=== PATIENT | female | born 1945 | race Caucasian/White ===

== ENCOUNTER 2020-10-30 14:47 | Inpatient (IN) | payer MEDICARE, OTHER ==
[~2020-10-30] VITALS: Ht 165.1 cm; Wt 79.4 kg
[2020-10-30 14:54] VITALS: BP 148/60
[2020-10-30] MEDS ORDERED: DORZOLAMIDE 2%10 ML EA. EYE (15:11)
[2020-10-30] MEDS ORDERED: LEVO-T100 MCG PO (15:12)
[2020-10-30] MEDS ORDERED: PLAVIX 75 MG TA75 MG PO (15:12)
[2020-10-30] MEDS ORDERED: AMITIZA 24 MCG24 MC1 PO (15:12)
[2020-10-30] MEDS ORDERED: DRIZALMA SPRINK30 MG PO (15:12)
[2020-10-30] MEDS ORDERED: ASA81BEC PO (15:12)
[2020-10-30 15:13] LABS: ABSOLUTE BASOPHILS 0.1 thou/uL (0.0-0.2); ABSOLUTE EOSINOPHILS 0.2 thou/uL (0.0-0.7); ABSOLUTE LYMPHOCYTES 2.1 thou/uL (0.8-5.3); ABSOLUTE MONOCYTES 0.6 thou/uL (0.0-1.2); ABSOLUTE NEUTROPHILS 8.4 thou/uL (1.6-8.1); BASOPHILS 0.8 %; EOSINOPHILS 1.9 %; HEMATOCRIT 37.5 % (37.0-47.0); HEMOGLOBIN 12.5 gm/dL (12.0-15.0); LYMPHOCYTES 18.3 %; MCH 28.4 pg (26.0-34.0); MCHC 33.4 g/dL (28.0-37.0); MONOCYTES 5.5 %; MPV 7.4 fl. (7.2-11.1); NUCLEATED RBCS 0 /100WBC; PLATELET COUNT* 303 thou/uL (150-400); POLYS 73.5 %; RBC 4.41 mil/uL (4.20-5.00); RDW-CV 13.9 % (10.5-14.5); WBC 11.4 thou/uL (4.0-11.0)
[2020-10-30] MEDS ORDERED: PROAIR HFA8.5 GM INH (15:13)
[2020-10-30] MEDS ORDERED: INTERMEZZO3.5 MG PO (15:13)
[2020-10-30 15:22] LABS: CALCIUM 9.6 mg/dL (8.5-10.1); CREATININE 1.2 mg/dL (0.6-1.3); POTASSIUM 4.1 mmol/L (3.5-5.1)
[2020-10-30 15:25] LABS: APTT 25.9 Seconds (25.0-31.3); PROTIME 10.5 Seconds (9.20-11.50)
[2020-10-30 15:32] LABS: ALBUMIN 3.9 g/dL (3.4-5.0); TOTAL BILIRUBIN 0.7 mg/dL (<0.1-1.0); TOTAL PROTEIN 7.6 g/dL (6.4-8.2)
[2020-10-30 16:58] VITALS: BP 123/66
[2020-10-30 20:00] VITALS: BP 118/45
[2020-10-30] MEDS ORDERED: AMBIEN 10 MG TA10 MG PO (21:45)
[2020-10-31] VITALS: BP 136/64
[2020-10-31 03:58] VITALS: BP 90/44
[2020-10-31 04:26] LABS: HEMATOCRIT 33.5 % (37.0-47.0); HEMOGLOBIN 11.3 gm/dL (12.0-15.0); MCH 28.8 pg (26.0-34.0); MCHC 33.8 g/dL (28.0-37.0); MCV 85.4 fL (80.0-100.0); MPV 7.9 fl. (7.2-11.1); RBC 3.93 mil/uL (4.20-5.00); RDW-CV 13.8 % (10.5-14.5); WBC 7.8 thou/uL (4.0-11.0)
[2020-10-31 04:48] LABS: CALCIUM 9.6 mg/dL (8.5-10.1); CREATININE 1.7 mg/dL (0.6-1.3); POTASSIUM 3.8 mmol/L (3.5-5.1)
[2020-10-31 08:00] VITALS: BP 87/40
[2020-10-31 11:43] VITALS: BP 92/47
--- NOTE | 2020-10-31 11:55 | EKG ---
[place] [address] ELECTROCARDIOGRAM REPORT Name: SANDIP LEWIS Room: [address] ADM IN ..#: [id number] Admission: 10/30/20 Attend Phys: Nakita Cardenas MD Discharge: Date of : 49 Date of Service: 10/30/20 1513 Report #: [id number] THIS REPORT FOR: //name// [facility] ED Test Date: 2020-10-30 Test Time: 15:13:21 Pat Name: SANDIP LEWIS Department: Room: [facility] Gender: F Enamel Cracker: ALICIA Garcia : 1945 Requested By: Jim Watts Order Number: [id number] MD: Jorge Escamilla Measurements Intervals [place] Rate: 74 P: 4 DE: 164 QRS: -62 QRSD: 100 T: 75 QT: 401 QTc: 445 Interpretive Statements Sinus rhythm Left anterior fascicular block Abnormal R-wave progression, early transition No previous ECG available for comparison Electronically Signed On 10-31-2020 11:55:00 SMASH FIXER by Jorge Escamilla [email or web address] <ELECTRONICALLY SIGNED> By: Seth Escamilla MD, [facility] 10/31/20 1155 1513 1513 Seth Escamilla MD, [facility] /EPI
--- NOTE | 2020-10-31 12:05 | CON ---
[address] [address] CONSULTATION Name: SANDIP LEWIS Room: [address] IN M.R.#: [id number] Admission: 10/30/20 Attend Phys: Nakita Cardenas MD Discharge: Date of : 49 Report #: [id number] THIS REPORT FOR: cc: Gilberto Bermudez Bradley L. DO ~ Seth Escamilla MD [facility] CARDIOLOGY CONSULTATION HISTORY OF PRESENT ILLNESS: I was asked by Dr. Cardenas to see this 75-year-old white female in cardiology consultation for evaluation and treatment of chest pain. This lady has a history of coronary bypass surgery in the distant past as well as 2 stents. She has a history of smoking in the past. She has hypercholesterolemia and high blood pressure. She has no leguillon debeader or doctor here. She has only recently moved here from [facility]. She began having chest pain about a week and a half ago after she had walked her dog. She describes it as a tightness in the chest or a load of bricks on her chest. She had several small episodes over the last 10 days or so. These sometimes occurred following exertion, but sometimes occurred at request. The episode that brought her to the hospital began at about 4:00 a.m. yesterday when she was awakened from sleep with it. The pain was a 9 on a scale of 10 initially. It was associated with numbness in both arms and shoulders. She said it felt like a ton of bricks. It lasted 9 hours before she finally came to the Emergency Room. She got nitroglycerin in the Emergency Room and had relief of the pain within 5 minutes. The pain initially went down to a 3, but then gradually went away. It was associated with shortness of breath. There were no other associated symptoms. There was no other radiation of the pain. She does have chronic dyspnea on exertion, shortness of breath. She does have chronic orthopnea and PND at times. She does have chronic edema at times. She has not had syncope. She has had near-syncopal episodes on 2 occasions. She does have high cholesterol. She is a former smoker. She quit years ago. She does have high blood pressure. There is a family history of heart disease. She does have stage 3 kidney disease. She is unaware of any carotid or peripheral vascular disease. She has never had a stroke or TIA. She does have pain in her legs when she walks, but she thinks it is arthritis. She does not have any open or nonhealing wounds. Additional issues include COPD and hypothyroidism. She also has chronic kidney disease, stage 3. She has had an appendectomy, cholecystectomy, hernia repair and a bladder tack. ALLERGIES: SHE IS ALLERGIC TO ERYTHROMYCIN AND LATEX. HOME MEDICATIONS: Include albuterol p.r.n., aspirin 81 mg daily, Plavix 75 mg daily, dorzolamide eyedrops, duloxetine 30 mg daily, Synthroid 100 mcg daily, Amitiza 24 mg daily and Ambien 10 mg daily at bedtime. SOCIAL HISTORY: She is . Does not smoke, drink or use illegal drugs. [address] [place] [address] CONSULTATION Name: SANDIP LEWIS Room: [address] IN M.Rosa.#: [id number] Admission: 10/30/20 Attend Phys: Nakita Cardenas MD Discharge: Date of : 49 Report #: [id number] FAMILY HISTORY: Father of a heart attack. Brother has coronary stents. REVIEW OF SYSTEMS: Positive for cough, sputum production, chest discomfort, shortness of breath with exercise, shortness of breath with lying down, waking up short of breath, thyroid trouble, blood in the urine, medical allergies, wearing glasses and glaucoma. Otherwise, review of systems is negative for some 30 different complaints in 14 different system categories. Please see review of system form for details and negatives in review of systems. Systems reviewed include central nervous system, general, respiratory, cardiovascular, endocrine, gastrointestinal, genitourinary, hematologic, lymphatic, allergic, immunologic, psychiatric, musculoskeletal, skin, eyes, ears, nose, mouth, and throat. PHYSICAL EXAMINATION: GENERAL: She presents as well-developed, well-nourished, obese white female, in no acute distress. VITAL SIGNS: Her pulse when I saw her was 58 and regular, blood pressure was 100/44, respirations were 18 and regular, temperature is 96.6. HEENT: Her head was atraumatic. Eyes clear. NECK: Supple. There is no jugular venous distention or hepatojugular reflux. Thyroid is not enlarged. There is no adenopathy. SKIN: Warm and dry. Mucous membranes are moist. LUNGS: Clear to auscultation and percussion. HEART: Revealed normal first and second heart sound. There is soft S4. There is no S3. There are no murmurs, rubs, thrills, heaves or gallops. PMI is nondisplaced. ABDOMEN: Soft, flat and nontender. No palpable masses, no organomegaly. EXTREMITIES: Reveal no cyanosis, clubbing or edema. LABORATORY DATA: Troponins were negative x 3 and her NT-proBNP was 401. Her EKG shows normal sinus rhythm with minimal ST-segment depression in V2. There is left axis deviation, left anterior fascicular block. There is early transition in precordial R-wave. IMPRESSION: 1. Chest pain consistent with unstable angina. 2. Coronary artery disease, status post 2 coronary stents. 3. Status post coronary artery bypass graft surgery. 4. Chronic obstructive pulmonary disease. 5. Hypothyroidism. 6. Chronic kidney disease, stage 3. RECOMMENDATIONS: She should have cardiac catheterization and coronary angiography tomorrow. In the meantime, she should have [place] [address] CONSULTATION Name: SANDIP LEWIS Room: [address] IN [facility].#: [id number] Admission: 10/30/20 Attend Phys: Nakita Cardenas MD Discharge: Date of : 49 Report #: [id number] nitro paste. She should be continued on her aspirin and Plavix. If she has further pain, she should get either Lovenox or heparin drip and consideration for an IV antiplatelet agent would be made if she persists being unstable at this point. She is not having pain; however, she has had no pain since she came in yesterday afternoon. Thank you very much for asking me to see the patient. If there are any questions, please feel free to contact me. <ELECTRONICALLY SIGNED> By: Seth Escamilla MD, [facility] 10/31/20 1205 1008 [id number]. Jorge Escamilla MD, MANNY /nt
[2020-10-31 16:13] VITALS: BP 97/42
[2020-10-31 20:54] VITALS: BP 127/50
[2020-11-01] VITALS (19 sets, daily range): BP systolic 101–161; BP diastolic 49–74
[2020-11-01 04:26] LABS: ABSOLUTE BASOPHILS 0.1 thou/uL (0.0-0.2); ABSOLUTE EOSINOPHILS 0.5 thou/uL (0.0-0.7); ABSOLUTE LYMPHOCYTES 2.3 thou/uL (0.8-5.3); ABSOLUTE MONOCYTES 0.6 thou/uL (0.0-1.2); ABSOLUTE NEUTROPHILS 4.1 thou/uL (1.6-8.1); BASOPHILS 1.1 %; EOSINOPHILS 6.5 %; HEMATOCRIT 34.8 % (37.0-47.0); HEMOGLOBIN 11.9 gm/dL (12.0-15.0); LYMPHOCYTES 30.1 %; MCH 29.1 pg (26.0-34.0); MCHC 34.2 g/dL (28.0-37.0); MPV 8.2 fl. (7.2-11.1); NUCLEATED RBCS 0 /100WBC; PLATELET COUNT* 259 thou/uL (150-400); POLYS 54.3 %; RDW-CV 13.8 % (10.5-14.5); WBC 7.5 thou/uL (4.0-11.0)
[2020-11-01 05:08] LABS: ALBUMIN 3.3 g/dL (3.4-5.0); CALCIUM 9.9 mg/dL (8.5-10.1); CREATININE 1.7 mg/dL (0.6-1.3); POTASSIUM 4.1 mmol/L (3.5-5.1); TOTAL BILIRUBIN 0.3 mg/dL (<0.1-1.0)
[2020-11-01 08:27] LABS: CHOLESTEROL 130 mg/dL (<200); HDL CHOLESTEROL 49 mg/dL (>40); LDL CHOLESTEROL 61 mg/dL (<100); TC:HDL 2.7 Ratio (Not establshd); TRIGLYCERIDE 104 mg/dL (<150); VLDL 21 mg/dL (<40)
[2020-11-01 08:45] LABS: SERUM ASSESSMENT Clear
--- NOTE | 2020-11-01 14:20 | CARD ---
[address] [address] CARDIAC CATH REPORT Name: JOSHUASANDIP Christopher Room: [address] IN [facility]#: [id number] Admission: 10/30/20 Attend Phys: Nakita Cardenas MD Discharge: Date of : 49 Report #: [id number] THIS REPORT FOR: cc: Gilberto Bermudez Bradley L. DO ~ Esequiel Mason MD [facility] APPROVED REPORT Study performed: 11/01/2020 11:52:31 Patient Details Patient Status: In-Patient Room #: 209 The patient is a 75 year-old female Event Personnel Esequiel Mason Touch Up Edger, Obey Kimball Subedi, Sujita RN RN, Rock Freeman RTR Monitor Procedures Performed Left Heart Cath Coronaries, Bypass Grafts [id number] LHCCORCABG Hemostasis w/ Mynx Indication Chest pain Risk Factors Obesity, Hypercholesterolemia, Hypertension, Last Creatanine 1.7 Previous Procedures/Diagnoses Previous CABGPrevious PCI Admission/Lab Medications/Medications given during procedure Fentanyl IV 25 mcg, Midazolam (Versed) IV 1 mg, Lidocaine Subcut 20 ml Procedure Narrative The patient was brought electively to the Cardiac Catheterization Laboratory and was prepped and draped in a sterile manner. The right femoral was infiltrated with 2% Lidocaine subcutaneous anesthesia. A [place] 6 FR sheath was inserted into the right femoral artery. Coronary angiography was performed using coronary diagnostic catheters. The right coronary system was accessed and visualized with a Diagnostic JR4 6Fr catheter. The [place] [address] CARDIAC CATH REPORT Name: SANDIP LEWIS Room: [address]#: [id number] Admission: 10/30/20 Attend Phys: Nakita Cardenas MD Discharge: Date of : 49 Report #: [id number] and visualized with a Diagnostic JL4 6Fr catheter. The left ventricle was accessed and visualized with a Diagnostic Pigtail 6Fr catheter. Left ventricular/Aortic Valve gradient assessed via catheter pullback. Pre-demployment femoral angiogram was performed . Closure device was deployed with a 6 Fr Mynx. The patient tolerated the procedure well and there were no complications associated with the procedure. There was no hematoma. Intraoperative Conscious Sedation Sedation start time: 1222 Case end Time: 1255 Fentanyl 25 mcg Versed 1 mg Fluoro Time: 5.7 minutes Dose: DAP 49690 cGycm2 810.76 mGy Contrast Type and Amount: Visipaque 100 ml [place] Artery Percent Stenosis 1. Diminutive but patent SINCLAIR graft to the distal LAD 2. Widely patent saphenous vein graft to marginal branch of the circumflex and the posterior descending branch of the distal circumflex Diagnostic Cath Left Main 40% distal narrowing LAD 30% proximal with 40% mid vessel narrowing Circumflex 40% mid vessel narrowing with 80% stenosis of the proximal portion of the prominent marginal branch and total occlusion of the posterior descending branch of the dominant circumflex Right Coronary Small nondominant vessel with 0% narrowing Left Ventriculography Left Ventriculography was not performed. Hemodynamics The aortic pressure is 140/61 mmHg with a mean of 89 mmHg. The left ventricular pressure is 130/-7 mmHg with a mean of mmHg. The left ventricular end diastolic pressure is 13 mmHg. There was no gradient across the aortic valve upon pullback. Conclusion 1. Significant coronary artery disease characterized by the following: [place] [address] CARDIAC CATH REPORT Name: SANDIP LEWIS Room: [address] IN [facility]#: [id number] Admission: 10/30/20 Attend Phys: Nakita Cardenas MD Discharge: Date of : 49 Report #: [id number] 40% distal left main coronary artery narrowing B 30% proximal and 40% mid LAD stenosis C 40% mid circumflex narrowing with 80% narrowing involving the proximal portion of the prominent marginal branch and total occlusion of the posterior descending branch of the dominant circumflex D small nondominant right coronary artery with 0% narrowing 2. Coronary artery bypass graft study characterized by the following: A diminutive but patent SINCLAIR graft to the distal LAD B widely patent saphenous vein graft to a marginal branch of the circumflex and the posterior descending branch of the dominant circumflex 3. Normal left-sided hemodynamic study Recommendations Cardiac Risk Reduction Program Diagnostic Cath Approved by: Esequiel Mason MD Date/Time: 11/01/2020 14:15:38 <ELECTRONICALLY SIGNED> By: Esequiel Mason MD, [facility] 11/01/20 1419 1419 1419Esequiel Mason MD, [facility] /INF
--- NOTE | 2020-11-01 15:52 | 2DMMODE ---
[place] [address] 2 D/M-MODE ECHOCARDIOGRAM Name: JOSHUASANDIP Christopher Room: [address] IN .Rosa.#: [id number] Admission: 10/30/20 Attend Phys: Nakita Cardenas MD Discharge: Date of : 49 Date of Service: 11/01/20 1551 Report #: [id number] THIS REPORT FOR: cc: Gilberto Bermudez Bradley L. DO Holkins, John M. MD [facility] ~ APPROVED REPORT Study performed: 11/01/2020 14:04:45 EXAM: Comprehensive 2D, Doppler, and color-flow Echocardiogram Patient Location: In-Patient Room #: 209 Status: routine BSA: 1.93 HR: 66 bpm BP: 127/57 mmHg Rhythm: NSR Other Information Study Quality: Good Indications Chest Pain 2D Dimensions IVSd: 10.82 (7-11mm) LVOT Diam: 21.09 (18-24mm) LVDd: 41.48 mm PWd: 9.12 (7-11mm) Ascending Ao: 30.65 (22-36mm) LVDs: 24.25 (25-40mm) Aortic Root: 30.17 mm Volumes Left Atrial Volume (Systole) LA ESV Index: 22.60 mL/m2 Aortic Valve AoV Peak Omar.: 1.44 m/s AO Peak Gr.: 8.32 mmHg LVOT Max P.42 mmHg AO Mean Gr.: 4.67 mmHg LVOT Mean P.23 mmHg LVOT Max V: 1.36 m/s AO V2 VTI: 29.47 cm LVOT Mean V: 0.97 m/s JERMAN (VTI): 3.65 cm2 LVOT V1 VTI: 30.80 cm AI [place]: 1.43 m/s2 [place] [address] 2 D/M-MODE ECHOCARDIOGRAM Name: SANDIP LEWIS Room: [address] IN M.R.#: [id number] Admission: 10/30/20 Attend Phys: Nakita Cardenas MD Discharge: Date of : 49 Date of Service: 11/01/20 1551 Report #: [id number] AI PHT: 741.90 ms Mitral Valve E/A Ratio: 0.75 MV Decel. Time: 375.02 ms MV E Max Omar.: 0.62 m/s MV PHT: 108.76 ms MVA (PHT): 2.02 cm2 TDI E/Lateral E': 6.89 E/Medial E': 7.75 Medial E' Omar.: 0.08 m/s Lateral E' Omar.: 0.09 m/s Pulmonary Valve PV Peak Omar.: 0.94 m/s PV Peak Gr.: 3.50 mmHg Left Ventricle The left ventricle is normal size. There is normal LV segmental wall motion. There is normal left ventricular wall thickness. Left ventricular systolic function is normal. The left ventricular ejection fraction is within the normal range. LVEF is 60%. Grade I - abnormal relaxation pattern. Right Ventricle The right ventricle is normal size. The right ventricular systolic function is normal. Atria The left atrium size is normal. The right atrium size is normal. Aortic Valve The aortic valve is normal in structure. Mild aortic regurgitation. There is no aortic valvular stenosis. Mitral Valve The mitral valve is normal in structure. There is no mitral valve regurgitation noted. No evidence of mitral valve stenosis. Tricuspid Valve The tricuspid valve is normal in structure. Unable to assess PA pressure. Trace tricuspid regurgitation. Pulmonic Valve The pulmonary valve is normal in structure. [place] [address] 2 D/M-MODE ECHOCARDIOGRAM Name: SANDIP LEWIS Room: [address] IN [facility]#: [id number] Admission: 10/30/20 Attend Phys: Nakita Cardenas MD Discharge: Date of : 49 Date of Service: 11/01/20 1551 Report #: [id number] valvular regurgitation. Great Vessels The aortic root is normal in size. IVC is normal in size and collapses >50% with inspiration. Pericardium There is no pericardial effusion. <Conclusion> The left ventricle is normal size. There is normal left ventricular wall thickness. Left ventricular systolic function is normal. The left ventricular ejection fraction is within the normal range. LVEF is 60%. Grade I - abnormal relaxation pattern. The right ventricle is normal size. The left atrium size is normal. The aortic valve is normal in structure. Mild aortic regurgitation. There is no aortic valvular stenosis. The mitral valve is normal in structure. The tricuspid valve is normal in structure. IVC is normal in size and collapses >50% with inspiration. There is no pericardial effusion. There is normal LV segmental wall motion. <ELECTRONICALLY SIGNED> By: Esequiel Mason MD, FACC 11/01/20 [phone] Esequiel Mason MD, FACC /INF
[2020-11-02 00:11] VITALS: BP 114/52
[2020-11-02 03:47] VITALS: BP 123/57
[2020-11-02 05:02] LABS: ABSOLUTE BASOPHILS 0.1 thou/uL (0.0-0.2); ABSOLUTE EOSINOPHILS 0.3 thou/uL (0.0-0.7); ABSOLUTE LYMPHOCYTES 1.9 thou/uL (0.8-5.3); ABSOLUTE MONOCYTES 0.6 thou/uL (0.0-1.2); ABSOLUTE NEUTROPHILS 5.1 thou/uL (1.6-8.1); BASOPHILS 0.8 %; EOSINOPHILS 3.4 %; HEMATOCRIT 29.8 % (37.0-47.0); HEMOGLOBIN 10.2 gm/dL (12.0-15.0); LYMPHOCYTES 23.7 %; MCH 29.1 pg (26.0-34.0); MCHC 34.2 g/dL (28.0-37.0); MCV 85.2 fL (80.0-100.0); MONOCYTES 7.2 %; MPV 7.7 fl. (7.2-11.1); NUCLEATED RBCS 0 /100WBC; PLATELET COUNT* 238 thou/uL (150-400); POLYS 64.9 %; RDW-CV 13.5 % (10.5-14.5); WBC 7.9 thou/uL (4.0-11.0)
[2020-11-02 05:11] LABS: ALBUMIN 2.9 g/dL (3.4-5.0); CREATININE 1.2 mg/dL (0.6-1.3); POTASSIUM 4.3 mmol/L (3.5-5.1); TOTAL BILIRUBIN 0.3 mg/dL (<0.1-1.0); TOTAL PROTEIN 5.9 g/dL (6.4-8.2)
[2020-11-02 08:00] VITALS: BP 136/57
[2020-11-02] MEDS ORDERED: NITROGLYCERIN0.4 MG SUBLING (08:35)
[2020-11-02] MEDS ORDERED: METOPROLOL TART25 MG PO (08:35)
[2020-11-02] MEDS ORDERED: LIPITOR40 MG PO (08:39)
[2020-11-02 10:26] VITALS: BP 136/57
== END 2020-11-02 12:30 | disposition home or self-care (01) | DRG 286 ==
LOC: M.ERS 14:47 → M.2W 16:08 → M.TBA-ER 16:08 → M.2W 17:33
PROVIDERS: Emergency Medicine Emergency Medical Services; Internal Medicine; Registered Nurse; ADMIT Family Medicine; ATTEND Family Medicine
DX: I25.110 Atherosclerotic heart disease of native coronary artery with unstable angina pectoris (principal); I50.33 Acute on chronic diastolic (congestive) heart failure; I13.0 Hypertensive heart and chronic kidney disease with heart failure and stage 1 through stage 4 chronic kidney disease, or unspecified chronic kidney disease; E78.5 Hyperlipidemia, unspecified; E03.9 Hypothyroidism, unspecified; N18.30 Chronic kidney disease, stage 3 unspecified; J44.9 Chronic obstructive pulmonary disease, unspecified; E78.00 Pure hypercholesterolemia, unspecified; Z20.822 Contact with and (suspected) exposure to COVID-19; Z88.8 Allergy status to other drugs, medicaments and biological substances; Z91.040 Latex allergy status; Z95.1 Presence of aortocoronary bypass graft; Z79.82 Long term (current) use of aspirin; Z79.899 Other long term (current) drug therapy; Z87.891 Personal history of nicotine dependence; Z79.01 Long term (current) use of anticoagulants

== ENCOUNTER → 2020-12-15 | Outpatient (CLI) | payer MEDICARE, OTHER ==
[~2020-12-15] MED LIST: AMBIEN 10 MG TA10 MG PO; AMITIZA 24 MCG24 MC1 PO; ASA81BEC PO; DORZOLAMIDE 2%10 ML EA. EYE; DRIZALMA SPRINK30 MG PO; INTERMEZZO3.5 MG PO; LEVO-T100 MCG PO; LIPITOR40 MG PO; METOPROLOL TART25 MG PO; NITROGLYCERIN0.4 MG SUBLING; PLAVIX 75 MG TA75 MG PO; PROAIR HFA8.5 GM INH
== END ==
LOC: M.ULTRA 12:33
PROVIDERS: ATTEND Otolaryngology
DX: R22.1 Localized swelling, mass and lump, neck (principal)

== ENCOUNTER → 2021-01-05 | Outpatient (CLI) | payer MEDICARE, OTHER ==
--- NOTE | 2021-01-12 16:06 | PATH ---
[address] [address] PATHOLOGY RPT PROCEDURE Name: SANDIP LEWIS Room: [facility]#: [id number] Admission: 01/05/21 Date of : 49 Discharge: Report #: [id number] Path Case #: [id number] Note [facility] Accession Number: [id number] TESTS RESULT FLAG UNITS REF RANGE LAB Clinician Provided Cytology Information No. of containers..01 Other (Miscellaneous) Source: RIGHT THYROID DIAGNOSIS: 02 RIGHT THYROID, IMAGE-GUIDED FNA: NEGATIVE FOR MALIGNANT CELLS. BETHESDA CATEGORY II. SPECIMEN CONSISTS OF A HETEROGENEOUS LYMPHOID POPULATION, HURTHLE CELLS, AND FOLLICULAR CENTER FRAGMENTS. THIS PATTERN IS CONSISTENT WITH A CHRONIC LYMPHOCYTIC THYROIDITIS. THIS INTERPRETATION INCLUDES EVALUATION OF A CELL BLOCK. Pathologist ICD10: 02 E06.3 Signed out by: Morris Rosen MD, Pathologist NPI- [id number] Performed by: Giovanna Motley, Machine Operator Cane Cutter ([facility]) Gross description: 01 15ML, CLDY LGHT TIAANG, 4FX 4AD /LCS 01/07/2021 1413 Local FLAG LEGEND: L-Low Normal,H-High Normal,LL-Alert Low,HH-Alert High <-Panic Low,>-Panic High,A-Abnormal,AA-Critical Abnormal Performed at: [address] [place] [address] Beto Garcia MD, [address] [place] [address] [place] [address] Stanford Rosen MD, Specimen Comment: A courtesy copy of this report has been sent to [phone], [phone] Specimen Comment: [phone] Specimen Comment: Report sent to Performed at: [address], [place], [place] [id number] MD Beto Garcia MD Phone: [phone]
== END | disposition home or self-care (01) ==
LOC: M.ULTRA 07:47
PROVIDERS: ATTEND Otolaryngology
DX: E04.1 Nontoxic single thyroid nodule (principal); I10 Essential (primary) hypertension; I25.10 Atherosclerotic heart disease of native coronary artery without angina pectoris; E03.9 Hypothyroidism, unspecified; E78.5 Hyperlipidemia, unspecified; Z98.890 Other specified postprocedural states; Z79.899 Other long term (current) drug therapy; Z91.040 Latex allergy status; Z88.8 Allergy status to other drugs, medicaments and biological substances; Z95.1 Presence of aortocoronary bypass graft; Z82.49 Family history of ischemic heart disease and other diseases of the circulatory system

== ENCOUNTER → 2021-02-03 | Outpatient (CLI) | payer MEDICARE, OTHER | LOC: M.RAD 10:50 | PROVIDERS: ATTEND Family Medicine | DX: Z12.31 Encounter for screening mammogram for malignant neoplasm of breast (principal) ==

== ENCOUNTER → 2021-07-05 | Outpatient (CLI) | payer MEDICARE, OTHER | LOC: M.MRI 06-27 08:30 | PROVIDERS: ATTEND Nurse Practitioner Adult Health | DX: M47.816 Spondylosis without myelopathy or radiculopathy, lumbar region (principal); M47.812 Spondylosis without myelopathy or radiculopathy, cervical region; M48.061 Spinal stenosis, lumbar region without neurogenic claudication; M47.817 Spondylosis without myelopathy or radiculopathy, lumbosacral region; L05.91 Pilonidal cyst without abscess; M50.323 Other cervical disc degeneration at C6-C7 level; M48.02 Spinal stenosis, cervical region; I70.8 Atherosclerosis of other arteries; N28.1 Cyst of kidney, acquired; G96.191 Perineural cyst ==

== ENCOUNTER → 2021-08-09 | Outpatient (CLI) | payer MEDICARE, OTHER ==
--- NOTE | 2021-08-09 09:06 | 2DMMODE ---
[place] [address] 2 D/M-MODE ECHOCARDIOGRAM Name: JOSHUASANDIPKEN VEGA Room: [facility]#: [id number] Admission: 08/09/21 Attend Phys: Jose Ramon Discharge: Date of : 49 Date of Service: 08/09/[address] Report #: [id number] THIS REPORT FOR: cc: Gilberto Bermudez Bradley L. DO Liston, Michael J. MD [facility] ~ APPROVED REPORT Study performed: 08/09/2021 09:27:04 EXAM: Comprehensive 2D, Doppler, and color-flow Echocardiogram Patient Location: Out-Patient BSA: 1.94 HR: 70 bpm BP: 145/70 mmHg Other Information Study Quality: Good Indications CAD 2D Dimensions IVSd: 10.91 (7-11mm) LVOT Diam: 20.65 (18-24mm) LVDd: 43.84 mm PWd: 12.21 (7-11mm) Ascending Ao: 29.28 (22-36mm) LVDs: 25.92 (25-40mm) Aortic Root: 28.75 mm Volumes Left Atrial Volume (Systole) LA ESV Index: 19.10 mL/m2 Aortic Valve AoV Peak Omar.: 1.47 m/s AO Peak Gr.: 8.68 mmHg LVOT Max P.66 mmHg AO Mean Gr.: 4.34 mmHg LVOT Mean P.07 mmHg LVOT Max V: 1.47 m/s AO V2 VTI: 34.97 cm LVOT Mean V: 0.93 m/s JERMAN (VTI): 3.35 cm2 LVOT V1 VTI: 34.96 cm AI [place]: 2.22 m/s2 AI PHT: 462.28 [place] [address] 2 D/M-MODE ECHOCARDIOGRAM Name: SANDIP LEWIS Room: [facility]#: [id number] Admission: 08/09/21 Attend Phys: Jose Ramon Discharge: Date of : 49 Date of Service: 08/09/21 0906 Report #: [id number] Mitral Valve E/A Ratio: 0.85 MV Decel. Time: 209.27 ms MV E Max Omar.: 0.77 m/s MV PHT: 60.69 ms MVA (PHT): 3.63 cm2 TDI E/Lateral E': 7.70 E/Medial E': 7.00 Medial E' Omar.: 0.11 m/s Lateral E' Omar.: 0.10 m/s Pulmonary Valve PV Peak Omar.: 0.98 m/s PV Peak Gr.: 3.87 mmHg Tricuspid Valve RAP Estimate: 5.00 mmHg TR Peak Gr.: 24.14 mmHg RVSP: 29.14 mmHg PA Pressure: 29.14 mmHg Left Ventricle The left ventricle is normal size. There is normal LV segmental wall motion. There is normal left ventricular wall thickness. Left ventricular systolic function is normal. LVEF is 65-70%. Grade I - abnormal relaxation pattern. Right Ventricle The right ventricle is normal size. The right ventricular systolic function is normal. Atria The left atrium size is normal. The right atrium size is normal. Aortic Valve Aortic valve leaflets are mildly thickened. Mild aortic regurgitation. There is no aortic valvular stenosis. Mitral Valve The mitral valve is normal in structure. There is no mitral valve regurgitation noted. No evidence of mitral valve stenosis. Tricuspid Valve The tricuspid valve is normal in structure. Mild tricuspid regurgitation. The RVSP is 30-35 [place] [address] 2 D/M-MODE ECHOCARDIOGRAM Name: SANDIP LEWISYCE Room: [facility]#: [id number] Admission: 08/09/21 Attend Phys: Jose Ramon Discharge: Date of : 49 Date of Service: 08/09/21 0906 Report #: [id number] Pulmonic Valve Pulmonic valve is not well visualized. There is no pulmonic valvular regurgitation. Great Vessels The aortic root is normal in size. IVC is normal in size and collapses >50% with inspiration. Pericardium There is no pericardial effusion. <Conclusion> The left ventricle is normal size. There is normal left ventricular wall thickness. Left ventricular systolic function is normal. LVEF is 65-70%. Grade I - abnormal relaxation pattern. There is normal LV segmental wall motion. Aortic valve leaflets are mildly thickened. Mild aortic regurgitation. Mild tricuspid regurgitation. The RVSP is 30-35 mmHg. IVC is normal in size and collapses >50% with inspiration. <ELECTRONICALLY SIGNED> By: Shankar Kat MD, FACC 08/09/21905 5 5 Shankar Kat MD, FACC /INF
== END ==
LOC: M.CRD 07:54
PROVIDERS: ATTEND Internal Medicine
DX: I08.2 Rheumatic disorders of both aortic and tricuspid valves (principal); I25.810 Atherosclerosis of coronary artery bypass graft(s) without angina pectoris; I10 Essential (primary) hypertension

== ENCOUNTER → 2021-10-06 | Outpatient (CLI) | payer MEDICARE, OTHER | LOC: M.CT 07:28 | PROVIDERS: ATTEND Family Medicine | DX: R51.9 Headache, unspecified (principal) ==

== ENCOUNTER 2021-10-09 13:48 | Emergency (ER) | payer MEDICARE, OTHER ==
[~2021-10-09] VITALS: Ht 165.1 cm; Wt 84.8 kg
[2021-10-09 14:25] LABS: ABSOLUTE BASOPHILS 0.1 thou/uL (0.0-0.2); ABSOLUTE EOSINOPHILS 0.2 thou/uL (0.0-0.7); ABSOLUTE LYMPHOCYTES 1.8 thou/uL (0.8-5.3); ABSOLUTE MONOCYTES 0.5 thou/uL (0.0-1.2); ABSOLUTE NEUTROPHILS 9.5 thou/uL (1.6-8.1); BASOPHILS 0.4 %; EOSINOPHILS 1.7 %; HEMATOCRIT 37.4 % (37.0-47.0); HEMOGLOBIN 12.3 gm/dL (12.0-15.0); LYMPHOCYTES 14.6 %; MCH 28.2 pg (26.0-34.0); MCV 85.3 fL (80.0-100.0); MONOCYTES 4.5 %; MPV 7.5 fl. (7.2-11.1); NUCLEATED RBCS 0 /100WBC; PLATELET COUNT* 245 thou/uL (150-400); POLYS 78.8 %; RBC 4.38 mil/uL (4.20-5.00); RDW-CV 14.3 % (10.5-14.5)
[2021-10-09 14:41] LABS: CREATININE 1.1 mg/dL (0.6-1.3); POTASSIUM 4.7 mmol/L (3.5-5.1)
[2021-10-09 14:45] LABS: ALBUMIN 3.3 g/dL (3.4-5.0); TOTAL BILIRUBIN 0.4 mg/dL (<0.1-1.0); TOTAL PROTEIN 6.7 g/dL (6.4-8.2)
[2021-10-09] MEDS ORDERED: NEURONTIN 300M300 M2 PO (15:09)
[2021-10-09] MEDS ORDERED: ZANAFLEX2 M1 PO ×2 (15:09)
[2021-10-09] MEDS ORDERED: TRAMADOL 50 MG50 MG PO (15:10)
[2021-10-09 15:14] LABS: URINE BILIRUBIN NEGATIVE (Negative); URINE BLOOD 3+ (Negative); URINE CLARITY CLOUDY; URINE COLOR YELLOW; URINE GLUCOSE-RANDOM NEGATIVE (Negative); URINE KETONES NEGATIVE (Negative); URINE LEUKOCYTES-REFLEX 1+ (Negative); URINE NITRITE-REFLEX NEGATIVE (Negative); URINE PROTEIN NEGATIVE (Negative); URINE SPECIFIC GRAVITY <= 1.005 (1.005-1.030); URINE UROBILINOGEN 0.2 E.U./dl (0.2-1.0)
[2021-10-09 15:16] LABS: CASTS None Seen /LPF (None Seen); CRYSTALS None Seen /LPF (None Seen); SQUAMOUS 0-3 Few /LPF (0-3); URINE WBC-REFLEX 6-15 Few /HPF (0-5)
--- NOTE | 2021-10-09 15:59 | EKG ---
[place] [address] ELECTROCARDIOGRAM REPORT Name: GARY LEWISKEN ALVARADOE Room: [facility]#: [id number] Admission: 10/09/21 Attend Phys: Discharge: Date of : 49 Date of Service: 10/09/21 1414 Report #: [id number] THIS REPORT FOR: //name// [facility] ED Test Date: 2021-10-09 Test Time: 14:14:15 Pat Name: SANDIP LEWIS Department: Room: Gender: F Patching Machine Operator: : 1945 Requested By: Roman Arechiga Order Number: [id number] MD: Jose Akins Measurements Intervals [place] Rate: 67 P: 60 [place]: 170 QRS: -52 QRSD: 111 T: 78 QT: 430 QTc: 454 Interpretive Statements Sinus rhythm Left anterior fascicular block Abnormal R-wave progression, late transition Compared to ECG 10/30/2020 15:13:21 No significant changes Electronically Signed On 10-09-2021 15:59:26 NEON GLASS BENDER by Jose Akins [email or web address] <ELECTRONICALLY SIGNED> By: Jose Akins MD, [facility] 10/09/21 1559 1414 1414 Jose Akins MD, [facility] /EPI
[2021-10-09 17:58] VITALS: BP 147/56
== END 2021-10-09 17:59 | disposition home or self-care (01) ==
LOC: M.ERS 13:48
PROVIDERS: Family Medicine
DX: K59.00 Constipation, unspecified (principal); Z20.822 Contact with and (suspected) exposure to COVID-19; R19.7 Diarrhea, unspecified; J44.9 Chronic obstructive pulmonary disease, unspecified; N18.30 Chronic kidney disease, stage 3 unspecified; Z90.49 Acquired absence of other specified parts of digestive tract; Z98.890 Other specified postprocedural states; Z95.5 Presence of coronary angioplasty implant and graft; Z79.899 Other long term (current) drug therapy; Z79.82 Long term (current) use of aspirin; Z88.1 Allergy status to other antibiotic agents; Z91.040 Latex allergy status

== ENCOUNTER 2021-10-12 17:58 | Inpatient (IN) | payer MEDICARE ==
[~2021-10-12] VITALS: Ht 165.1 cm; Wt 88.7 kg
[~2021-10-12 17:58] MED LIST changes: +NEURONTIN 300M300 M2 PO; +TRAMADOL 50 MG50 MG PO; +ZANAFLEX2 M1 PO
[2021-10-12 18:19] VITALS: BP 196/97
[2021-10-12 19:18] LABS: ABSOLUTE BASOPHILS 0.1 thou/uL (0.0-0.2); ABSOLUTE EOSINOPHILS 0.4 thou/uL (0.0-0.7); ABSOLUTE MONOCYTES 0.7 thou/uL (0.0-1.2); ABSOLUTE NEUTROPHILS 6.9 thou/uL (1.6-8.1); BASOPHILS 0.5 %; EOSINOPHILS 3.4 %; HEMATOCRIT 39.8 % (37.0-47.0); LYMPHOCYTES 26.8 %; MCH 28.3 pg (26.0-34.0); MCHC 32.7 g/dL (28.0-37.0); MCV 86.6 fL (80.0-100.0); MONOCYTES 6.5 %; MPV 7.4 fl. (7.2-11.1); NUCLEATED RBCS 0 /100WBC; PLATELET COUNT* 311 thou/uL (150-400); POLYS 62.8 %; RBC 4.59 mil/uL (4.20-5.00); RDW-CV 14.5 % (10.5-14.5)
[2021-10-12 19:26] LABS: CALCIUM 10.1 mg/dL (8.5-10.1); CREATININE 1.3 mg/dL (0.6-1.3); POTASSIUM 4.2 mmol/L (3.5-5.1)
[2021-10-12 19:30] LABS: TOTAL BILIRUBIN 0.4 mg/dL (<0.1-1.0); TOTAL PROTEIN 7.9 g/dL (6.4-8.2)
[2021-10-12 21:41] LABS: URINE BILIRUBIN NEGATIVE (Negative); URINE BLOOD NEGATIVE (Negative); URINE CLARITY CLEAR; URINE COLOR YELLOW; URINE GLUCOSE-RANDOM NEGATIVE (Negative); URINE KETONES NEGATIVE (Negative); URINE LEUKOCYTES NEGATIVE (Negative); URINE NITRITE NEGATIVE (Negative); URINE PROTEIN NEGATIVE (Negative); URINE UROBILINOGEN 0.2 E.U./dl (0.2-1.0)
[2021-10-12 22:23] VITALS: BP 186/92
[2021-10-12 23:03] VITALS: BP 176/72
[2021-10-12 23:07] VITALS: BP 176/86
[2021-10-13 04:00] VITALS: BP 129/42; BP 163/69
[2021-10-13 08:50] VITALS: BP 147/66
[2021-10-13 09:20] VITALS: BP 123/61
[2021-10-13 15:39] VITALS: BP 141/64
[2021-10-13 20:05] VITALS: BP 147/69
[2021-10-14] VITALS: BP 146/60
[2021-10-14 05:30] LABS: HEMATOCRIT 34.6 % (37.0-47.0); HEMOGLOBIN 11.7 gm/dL (12.0-15.0); MCH 28.3 pg (26.0-34.0); MCHC 33.8 g/dL (28.0-37.0); MCV 83.8 fL (80.0-100.0); MPV 7.5 fl. (7.2-11.1); RBC 4.12 mil/uL (4.20-5.00); RDW-CV 14.3 % (10.5-14.5); WBC 7.6 thou/uL (4.0-11.0)
[2021-10-14 06:00] LABS: CALCIUM 9.3 mg/dL (8.5-10.1); CREATININE 1.1 mg/dL (0.6-1.3); POTASSIUM 3.6 mmol/L (3.5-5.1)
[2021-10-14 08:10] VITALS: BP 173/71
[2021-10-14 14:19] VITALS: BP 140/48
--- NOTE | 2021-10-14 15:51 | CON ---
[address] [address] CONSULTATION Name: SANDIP LEWIS Room: [address] M.R.#: [id number] Admission: 10/12/21 Attend Phys: Radha Prater MD Discharge: Date of : 49 Report #: [id number] THIS REPORT FOR: cc: Gilberto Bermudez Bradley L. DO Namin, Farid M. MD ~ cc: Gilberto Bermudez DO DATE OF CONSULTATION: 10/13/2021 Please note at the time of this dictation, the patient was seen and physically examined by myself. REASON FOR CONSULTATION: Abdominal pain and diarrhea along with some nausea and vomiting. HISTORY OF PRESENT ILLNESS: This is a 75-year-old female who presented to the Emergency Room with worsening of her abdominal pain. The patient states that over the last 3 days, she has had constipation. She states she normally takes Amitiza twice a day and she normally goes; however, over the weekend, she quit going. She took 2 Amitiza twice a day for several days without any help with evacuation. She states that it just got worse and then all of a sudden she started having diarrhea and felt like she still had stool. She tried to give herself an enema without any results. Her stools are still liquidy. She still has significant abdominal pain as well as some abdominal distention and does have some slight nausea. Her CT scan showed that she had dilated colon at 9 cm and a great deal of small bowel and stomach distention as well. The patient states that she had an EGD and a colonoscopy done in [place] about 5 years ago. We will request those records. She did say that she has a longstanding history of irritable bowel syndrome towards constipation in which she has normally taken Amitiza for. ALLERGIES: ERYTHROMYCIN AND LATEX. MEDICATIONS FROM HOME: Include tramadol, gabapentin, tizanidine, albuterol, zolpidem, duloxetine, aspirin, Amitiza, levothyroxine, and dorzolamide eyedrops. PAST MEDICAL HISTORY: COPD, chronic kidney disease stage 2, irritable bowel syndrome towards constipation. PAST SURGICAL HISTORY: She has had 2 stents placed and a CABG, cholecystectomy and hernia surgery. FAMILY HISTORY: Negative for any GI [place] [address] CONSULTATION Name: SANDIP LEWIS GARY Room: [address]#: [id number] Admission: 10/12/21 Attend Phys: Radha Prater MD Discharge: Date of : 49 Report #: [id number] SOCIAL HISTORY: Denies any tobacco, alcohol or illegal drug use. REVIEW OF SYSTEMS: Twelve-point review of systems is essentially negative except what is mentioned in the HPI. PHYSICAL EXAMINATION: VITAL SIGNS: Temperature 36.9, pulse 79, respirations 16, blood pressure 129/42. HEART: Regular rate and rhythm. LUNGS: Clear, slightly diminished. ABDOMEN: Soft, positive bowel sounds in all 4 quadrants with some diffuse tenderness noted throughout and also some distention noted. LABORATORY AND DIAGNOSTIC DATA: Hemoglobin is 13, white count is 11, platelets 311. BUN is 23, creatinine is 1.3. GFR is 40. LFTs are completely normal. Abdominal x-ray showed dilated colon up to 9 cm along to marked gaseous distention of the stomach and concerning for distal colonic obstruction. CT scan showed a fluid seen throughout the small bowel and colon. No abnormal mural thickening or surrounding inflammation to suggest significant interval colitis. She has distal colonic diverticulosis, but no evidence of diverticulitis. IMPRESSION: 1. Abdominal pain. 2. Diarrhea. 3. Abnormal CT dilated small bowel and colon with a distended stomach as well. 4. History of irritable bowel syndrome towards constipation. PLAN: 1. To place NG to intermittent low suction. 2. Dulcolax suppository 20 mg now. 3. Obtain medical records from [facility]. EGD colon and any other GI records. 4. Obtain an abdominal x-ray in the a.m. 5. Further recommendations to be made after Dr. Worthington sees the patient later today. Thank you for allowing us to participate in this patient's care. Please do not hesitate to call with any questions regarding this consult. <ELECTRONICALLY SIGNED> By: Shari Worthington MD 10/14/21 [id number] Worthington MD /nt
[2021-10-14 20:20] VITALS: BP 118/46
[2021-10-15 00:59] VITALS: BP 109/50
[2021-10-15 08:00] VITALS: BP 126/78
[2021-10-15 08:07] VITALS: BP 162/69
[2021-10-15] MEDS ORDERED: CARAFATE 11 GM/10 M1 PO (10:00)
[2021-10-15] MEDS ORDERED: PROTONIX40 M2 PO (10:00)
[2021-10-15] MEDS ORDERED: MIRALAX17 G1 PO (10:06)
[2021-10-15 12:00] VITALS: BP 128/44
[2021-10-15 13:39] VITALS: BP 128/44
--- NOTE | 2021-10-19 15:09 | PATH ---
[address] [address] PATHOLOGY RPT PROCEDURE Name: YORDYTIANNA Room: [address] IN .R.#: [id number] Admission: 10/12/21 Date of : 49 Discharge: 10/15/21 Report #: [id number] Path Case #: [id number] [facility] Accession Number: [id number] . 01 Material submitted: . stomach - GASTRIC BIOPSY. Modifiers: GASTRIC . 01 Clinical history: . CONSTIPATION, INTRACTABLE ABDOMINAL PAIN EGD IN OR . 02 Diagnosis: Gastric biopsy: - Mild nonspecific chronic gastritis, negative for Helicobacter pylori organisms and dysplasia. (KARI:jordan; 10/19/2021) . Special stain: H. pylori immuno MBR 10/19/2021 1449 Local . 02 Electronically signed: . Stanford Rosen MD, Pathologist NPI- [id number] . 01 Gross description: . The specimen is received in formalin, labeled "YordyTianna, gastric biopsy". Received are 3 segments of pale epps tissue ranging in size from 0.2-0.5 cm in maximum dimensions. The specimen is entirely submitted in cassette A1. ([facility]; 10/18/2021) NRI/NRI 10/18/2021 1749 Local . 02 Pathologist provided ICD-10: K29.50 . 02 CPT . 853200, E40457 Specimen Comment: A courtesy copy of this report has been sent to [phone] Specimen Comment: [phone], Specimen Comment: Report sent to , DR REYNOSO / DR SINGH Performed at: [address], [place] [id number] MD Beto Garcia MD Phone: [phone] Performed at: 02 [facility] [address] [place], [place] [id number] [place] [address] PATHOLOGY RPT PROCEDURE Name: TIANNA LEWIS Room: [address] IN M.R.#: [id number] Admission: 10/12/21 Date of : 49 Discharge: 10/15/21 Report #: [id number] Path Case #: [id number] MD Stanford Rosen MD Phone: [phone]
== END 2021-10-15 14:00 | disposition home or self-care (01) | DRG 389 ==
LOC: M.ERS 17:58 → M.2W 21:50 → M.TBA-ER 21:50 → M.2W 23:00
PROVIDERS: Internal Medicine; Physician Assistant; ADMIT Internal Medicine; ATTEND Internal Medicine
PROC: 0D9670Z Drainage of Stomach with Drainage Device, Via Natural or Artificial Opening (ICD-10-PCS; principal; 2021-10-14)
PROC: 0DB58ZX Excision of Esophagus, Via Natural or Artificial Opening Endoscopic, Diagnostic (ICD-10-PCS; 2021-10-14)
DX: K56.609 Unspecified intestinal obstruction, unspecified as to partial versus complete obstruction (principal); K92.2 Gastrointestinal hemorrhage, unspecified; Z88.8 Allergy status to other drugs, medicaments and biological substances; Z91.040 Latex allergy status; J44.9 Chronic obstructive pulmonary disease, unspecified; I12.9 Hypertensive chronic kidney disease with stage 1 through stage 4 chronic kidney disease, or unspecified chronic kidney disease; N18.30 Chronic kidney disease, stage 3 unspecified; K59.09 Other constipation; K44.9 Diaphragmatic hernia without obstruction or gangrene; K31.9 Disease of stomach and duodenum, unspecified; Z95.1 Presence of aortocoronary bypass graft; F17.210 Nicotine dependence, cigarettes, uncomplicated; Z95.5 Presence of coronary angioplasty implant and graft; Z20.822 Contact with and (suspected) exposure to COVID-19